=== PATIENT | male | born 1945 | race Caucasian/White ===

== ENCOUNTER 2018-04-10 12:39 | Emergency (ER) | payer MEDICARE ==
[2018-04-10 16:05] LABS: ABS Basophils 0.1 10^3/ul (0-0.2); ABS Eosinophils 0.1 10^3/ul (0-0.6); ABS Lymphocytes 1.7 10^3/ul (1.0-4.8); ABS Monocytes 0.9 10^3/ul (0-0.8); ABS Neutrophils 6.7 10^3/ul (1.5-7.7); ABS Nucleated RBC 0 10^3/ul; Eosinophil % 1.5 % (0-6); Hematocrit 49 % (42-52); Hemoglobin 17.1 g/dl (14.0-18.0); Lymphocyte % 17.7 % (25-47); Mean Corpuscular HGB Conc 35 g/dl (31-36); Mean Corpuscular Hemoglobin 33 pg (27-31); Mean Corpuscular Volume 95 fL (80-94); Mean Platelet Volume 7.7 um3 (7.4-10.4); Nucleated Red Blood Cells % 0.1; Platelet Count 260 10^3/ul (150-450); Red Blood Count 5.17 10^6/ul (4.00-5.40); Red Cell Distribution Width 14 % (10.5-15); White Blood Count 9.4 10^3/ul (3.5-10.8)
[2018-04-10 16:27] LABS: EGFR Non-African American 69.6 (>60)
--- NOTE | 2018-04-10 16:34 | ED ---
Abdominal Pain/Male - HPI Summary HPI Summary: A 72 y/o M presents to the ED with RLQ pain since yesterday morning when he was in his Spin class. He does not feel the pain when lying down, but sitting up worsens the pain. The pain does not worsen when coughing or sneezing. He describes the pain as an intermittent pressure that once in a while feels like a pushing pain. He denies any emesis, seizures, sweats, chills, groin pain, testicle pain, back pain, hematuria, diarrhea, bloody stool or Hx of kidney stones. - History of Current Complaint Chief Complaint: EDAbdPain Stated Complaint: RT ABD PAIN Time Seen by Provider: 04/10/18 15:24 Hx Obtained From: Patient Onset/Duration: Sudden Onset, Lasting Hours, Still Present Timing: Intermittent, Lasting Hours Severity Initially: Moderate Severity Currently: Mild Pain Intensity: 2 Pain Scale Used: 0-10 Numeric Location: Discrete At: RLQ Character: Other: - pressure Aggravating Factor(s): Other: - sitting up Associated Signs And Symptoms: Positive: Negative - Allergies/Home Medications Allergies/Adverse Reactions: Allergies Allergy/AdvReac Type Severity Reaction Status Date / Time gluten Allergy See Comment Verified 04/10/18 12:58 Home Medications: Home Medications Aspirin [Adult Aspirin Regimen] 81 mg PO DAILY 04/10/18 [History Confirmed 04/10] Fluticasone-Salmeterol 500-50* [Advair Diskus 500-50*] 1 puff INH BID 04/10/18 [ History Confirmed 04/10/18] Methylphenidate HCl [Methylphenidate HCl ER] 30 mg PO DAILY 04/10/18 [History Confirmed 04/10/18] Methylphenidate HCl [Ritalin] 20 mg PO DAILY 04/10/18 [History Confirmed ] Omalizumab (NF) [Xolair (NF)] 150 mg SUBCUT SEE INSTRUCTIONS 04/10/18 [History Confirmed 04/10/18] [place]-3 Fatty Acids/Fish Oil [Fish Oil 1,000 mg Capsule] 1 each PO DAILY [History Confirmed 04/10/18] Testosterone Cypionate 100 mg IM WEEKLY 04/10/18 [History Confirmed 04/10/18] PMH/Surg Hx/FS Hx/Imm Hx Previously Healthy: No Endocrine/Hematology History: Reports: Hx Diabetes Respiratory History: Reports: Hx Asthma Musculoskeletal History: Denies: Hx Osteoporosis - Surgical History Surgery Procedure, Year, and Place: PANCREATIC CA - Immunization History Immunizations Up to Date: Yes Infectious Disease History: No Infectious Disease History: Denies: Traveled Outside the [place] in Last 30 Days - Family History Known Family History: Negative: Hypertension, Diabetes - Social History Alcohol Use: Rare Alcohol Amount: 1 beer per week Substance Use Type: Reports: None Smoking Status (MU): Never Smoked Tobacco Review of Systems Negative: Fever, Chills Negative: Erythema Negative: Sore Throat Negative: Chest Pain Negative: Shortness Of Breath, Cough Gastrointestinal: Negative - bloody stool Positive: Abdominal Pain. Negative: Vomiting, Diarrhea, Nausea Negative: dysuria, hematuria Negative: Myalgia, Edema Neurological: Negative - dizziness All Other Systems Reviewed And Are Negative: Yes Physical Exam - Summary Physical Exam Summary: Constitutional: Well-developed, Well-nourished, Alert. (-) Distressed Skin: Warm, Dry HENT: Normocephalic; Atraumatic Eyes: Conjunctiva normal Neck: Musculoskeletal ROM normal neck. (-) JVD, (-) Stridor, (-) Tracheal deviation Cardio: Rhythm regular, rate normal, Heart sounds normal; Intact distal pulses; The pedal pulses are 2+ and symmetric. Radial pulses are 2+ and symmetric. (-) Murmur Pulmonary/Chest wall: Effort normal. (-) Respiratory distress, (-) Wheezes, (-) Rales Abd: Discrete RLQ tenderness with deep palpation reproducible when sitting up, no palpatory hernia, soft, (-) epigastric tenderness, (-) Distension, (-) Guarding, (-) Rebound Musculoskeletal: (-) Edema Lymph: (-) Cervical adenopathy Neuro: Alert, Oriented x3 Psych: Mood and affect Normal Discrete RLQ tenderness with deep palpation no palpatory hernia no rebound or guardin reproducible when sitting up Triage Information Reviewed: Yes Vital Signs On Initial Exam: Initial Vitals Temp Pulse Resp BP Pulse Ox 98.1 F 74 16 163/90 97 04/10/18 12:52 04/10/18 12:52 04/10/18 12:52 04/10/18 12:52 04/10/18 12:52 Vital Signs Reviewed: Yes Diagnostics - Vital Signs Vital Signs Temp Pulse Resp BP Pulse Ox 04/10/18 15:03 98.4 F 65 16 130/98 98 04/10/18 12:52 98.1 F 74 16 163/90 97 - Laboratory Lab Results: Lab Results 04/10/18 04/10/18 04/10/18 Range/Units 15:51 15:51 15:51 WBC 9.4 (3.5-10.8) 10^3/ul RBC 5.17 (4.00-5.40) 10^6/ul Hgb 17.1 (14.0-18.0) g/dl Hct 49 (42-52) % MCV 95 H (80-94) fL MCH 33 H (27-31) pg MCHC 35 (31-36) g/dl RDW 14 (10.5-15) % Plt Count 260 (150-450) 10^3/ul MPV 7.7 (7.4-10.4) um3 Neut % (Auto) 70.9 (38-83) % Lymph % (Auto) 17.7 L (25-47) % [place] % (Auto) 9.3 H (0-7) % Eos % (Auto) 1.5 (0-6) % Baso % (Auto) 0.6 (0-2) % Absolute Neuts (auto) 6.7 (1.5-7.7) 10^3/ul Absolute Lymphs (auto) 1.7 (1.0-4.8) 10^3/ul Absolute Monos (auto) 0.9 H (0-0.8) 10^3/ul Absolute Eos (auto) 0.1 (0-0.6) 10^3/ul Absolute Basos (auto) 0.1 (0-0.2) 10^3/ul Absolute Nucleated RBC 0 10^3/ul Nucleated RBC % 0.1 Sodium 136 (135-145) mmol/L Potassium 4.5 (3.5-5.0) mmol/L Chloride 105 (101-111) mmol/L Carbon Dioxide 26 (22-32) mmol/L Anion Gap 5 (2-11) mmol/L BUN 21 (6-24) mg/dL Creatinine 1.05 (0.67-1.17) mg/dL Est GFR ( Amer) 84.2 (>60) Est GFR (Non-Af Amer) 69.6 (>60) BUN/Creatinine Ratio 20.0 (8-20) Glucose 150 H (70-100) mg/dL Lactic Acid 0.9 (0.5-2.0) mmol/L Calcium 9.3 (8.6-10.3) mg/dL Total Bilirubin 0.70 (0.2-1.0) mg/dL AST 27 (13-39) U/L ALT 24 (7-52) U/L Alkaline Phosphatase 59 (34-104) U/L C-Reactive Protein 1.78 (<8.01) mg/L Total Protein 6.9 (6.4-8.9) g/dL Albumin 4.1 (3.2-5.2) g/dL Globulin 2.8 (2-4) g/dL Albumin/Globulin Ratio 1.5 (1-3) Lipase < 10 L (11.0-82.0) U/L Result Diagrams: 04/10/18 15:51 04/10/18 15:51 Lab Statement: Any lab studies that have been ordered have been reviewed, and results considered in the medical decision making process. - CT Abdomen/Pelvis CT Interpretation Completed By: Radiologist - No acute intra-abdominal pathology. Other chronic findings, as above. This report has been reviewed by the ED physician Abdominal Pain Fem Course/Dx - Course Course Of Treatment: A 72 y/o M presents to the ED with RLQ pain since yesterday morning when he was in his Spin class. He does not feel the pain when lying down, but sitting up worsens the pain. The pain does not worsen when coughing or sneezing. He describes the pain as an intermittent pressure that once in a while feels like a pushing pain. He denies any emesis, seizures, sweats, chills, groin pain, testicle pain, back pain, hematuria, diarrhea, bloody stool or Hx of kidney stones. The physical exam revealed RLQ Tenderness that was exacerbated with movement. Labs and CT were negative. I counciled him on the incidental findings of his CT. Final Dx: abdominal muscle strain and left inguinal hernia. The patient was instructed to use Tylenol and a heating pad. The patient will be discharged and should follow up with his PCP in 2-3 days. The patient is agreeable with this plan. - Diagnoses Provider Diagnoses: Abdominal muscle strain, Left inguinal hernia Discharge - Sign-Out/Discharge Documenting (check all that apply): Patient Departure - DC - Discharge Plan Condition: Stable Disposition: HOME Patient Education Materials: Abdominal Pain (ED) Referrals: Olena Gallardo MD [Primary Care Provider] - 2 Days Additional Instructions: Please return to the ED if you experience any changing or worsening symptoms. - Attestation Statements Document Initiated by Scribe: Yes Documenting Scribe: Jaya Hua Provider For Whom Scribe is Documenting (Include Credential): Sam Felton MD Scribe Attestation: Jaya Pham, scribed for Sam Felton MD on 04/10/18 at 1941.
[2018-04-10] MEDS ORDERED: Iohexol 300* (CONTRAST) 10 ML SDV IV ONE (17:00)
--- NOTE | 2018-04-10 19:09 | RAD ---
EXAM: CT Abdomen and Pelvis With Intravenous Contrast CLINICAL HISTORY: 72 years old, male; Pain; Abdominal pain; Localized; Right lower quadrant (rlq); Prior surgery; Surgery date: 6+ months; Surgery type: 2005 partial pancreas removal; Additional info: Rlq pain, HX pancreatic ca TECHNIQUE: Axial computed tomography images of the abdomen and pelvis with intravenous contrast. All CT scans at this facility use at least one of these dose optimization techniques: automated exposure control; mA and/or kV adjustment per patient size (includes targeted exams where dose is matched to clinical indication); or iterative reconstruction. Coronal and sagittal reformatted images were created and reviewed. CONTRAST: 111 mL of [id number] administered intravenously. COMPARISON: No relevant prior studies available. FINDINGS: Lung bases: Unremarkable. No mass. No consolidation. ABDOMEN: Liver: Unremarkable. No mass. Gallbladder and bile ducts: Unremarkable. No calcified stones. No ductal dilation. Pancreas: Surgical changes compatible partial pancreatectomy. Spleen: Unremarkable. No splenomegaly. Adrenals: Unremarkable. No mass. Kidneys and ureters: Unremarkable. No solid mass. No hydronephrosis. Stomach and bowel: Unremarkable. No obstruction. No mucosal thickening. PELVIS: Appendix: No findings to suggest acute appendicitis. Bladder: Unremarkable. No mass. Reproductive: Unremarkable as visualized. ABDOMEN and PELVIS: Intraperitoneal space: Unremarkable. No free air. No significant fluid collection. Bones/joints: Multilevel degenerative changes of the visualized spine. No acute fracture. No dislocation. Soft tissues: Small fat containing left inguinal hernia. Vasculature: Unremarkable. No abdominal aortic aneurysm. Lymph nodes: Unremarkable. No enlarged lymph nodes. IMPRESSION: 1. No acute intra-abdominal pathology. 2. Other chronic findings, as above. To contact [facility] with a general question: Operations Center - [phone] For direct physician to physician contact: Physician Hotline - [phone] [facility] ([facility] Facility ID #[id number])
[2018-04-10 19:22] LABS: Urine Appearance Clear; Urine Blood Negative (Negative); Urine Color Straw; Urine Ketones Negative (Negative); Urine Protein Negative (Negative); Urine Urobilinogen Negative (Negative)
[2018-04-10 20:04] VITALS: BP 162/92
== END 2018-04-10 20:05 | disposition home or self-care (01) ==
LOC: ED 12:39
DX: S39.011A Strain of muscle, fascia and tendon of abdomen, initial encounter (principal); X58.XXXA Exposure to other specified factors, initial encounter; R10.31 Right lower quadrant pain; K46.9 Unspecified abdominal hernia without obstruction or gangrene; E11.9 Type 2 diabetes mellitus without complications; Z79.899 Other long term (current) drug therapy; Z85.07 Personal history of malignant neoplasm of pancreas
CPT/HCPCS: 36415; 74177; 80053; 81003; 83605; 83690; 85025; 86140; 86803; 99282; Q9967

== ENCOUNTER 2024-03-04 09:16 | Observation (INO) ==
[2024-03-04 10:57] LABS: ABS Lymphocytes 1.1 10^3/uL (1.0-4.8); ABS Monocytes 1.5 10^3/uL (0.0-1.1); ABS Neutrophils 6.8 10^3/uL (1.5-7.6); ABS Nucleated RBC 0.01 10^3/ul; Hemoglobin 17.8 g/dL (13.2-16.3); Lymphocyte % 11.8 %; Mean Corpuscular Hemoglobin 32.2 pg (27-33); Mean Corpuscular Hgb Conc 34.2 g/dL (31-36); Mean Corpuscular Volume 94.3 fL (80-97); Nucleated Red Blood Cells % 0.1 %/100WBC (0.0-0.8); Platelet Count 198 10^3/uL (150-450); Red Blood Count 5.52 10^6/uL (4.06-5.63); Red Cell Distribution Width 14.2 % (12-17); White Blood Count 9.5 10^3/uL (3.6-10.2)
[2024-03-04 11:40] LABS: Albumin 4.1 g/dL (3.2-5.2); Albumin/Globulin Ratio 1.2 (1-3); Calcium 8.7 mg/dL (8.6-10.3); Creatinine, Serum 1.6 mg/dL (0.67-1.17); Globulin 3.3 g/dL (2-4); Potassium 5.2 mmol/L (3.5-5.0); Total Bilirubin 0.5 mg/dL (0.2-1.0); Total Protein 7.4 g/dL (6.4-8.9); eGFR CKD-EPI 44.1 (>60)
[2024-03-04] MEDS: NS 0.9% 1000 ml BAG 1,000 ML IV ONE (12:10)
[2024-03-04] MEDS: Acetaminophen IV 1 GM/100ML 1,000 MG/100 ML BAG IV ONE (12:12)
[2024-03-04 12:40] LABS: Rapid Strep Molecular Negative (Negative)
[2024-03-04] MEDS: Iodixanol (CONTRAST) 320 MG/ML 100 ML SDV IV ONE (13:33)
[2024-03-04] MEDS ORDERED: Polyethylene Glycol 3350 17 GM PACKET PO PRN (15:17)
[2024-03-04] MEDS ORDERED: Senna TAB 8.6 mg TAB PO PRN (15:17)
[2024-03-04] MEDS ORDERED: Benzocaine/Menthol LOZ MT PRN (15:27)
[2024-03-04] MEDS: Dexamethasone IV 4 MG/ML VIAL 1 ml VIAL IV SLOW PU ONE (15:57)
[2024-03-04] MEDS ORDERED: Albuterol HFA INHALER 8 gm MDI INH PRN (16:20)
[2024-03-04] MEDS ORDERED: Dextrose 50% Syringe 50 ml 25 GM/50 ML SYRINGE IV PUSH PRN (16:21)
[2024-03-04] MEDS: Remdesivir 100 mg Vial 200 MG in NS 0.9% 250 ml 210 ML IV ONE (16:23)
[2024-03-04] MEDS: Remdesivir 100 mg Vial 100 MG in NS 0.9% 250 ml 230 ML IV SCH (17:05)
[2024-03-04] MEDS: Azithromycin 500 mg/250 ml NS 500 MG/250 ML BAG IVPB SCH (17:53)
[2024-03-04] MEDS: Magic MouthWash2-BEN/MAAL/LIDO/NYST 240 ML BTL (alt formulation) SWISH SPIT SCH (17:53)
[2024-03-04] MEDS: Lactated Ringers 1000 ml BAG 1,000 ML IV ONE (17:53)
[2024-03-04] MEDS: Enoxaparin 40 MG/0.4 ML SYR SUBCUT SCH (18:06)
[2024-03-04] MEDS: Mometasone/Formoter 200/5 MDI INH SCH (19:42)
[2024-03-04 19:57] LABS: INR 1.22 (0.85-1.14)
[2024-03-05 06:32] LABS: ABS Lymphocytes 0.7 10^3/uL (1.0-4.8); ABS Monocytes 0.8 10^3/uL (0.0-1.1); ABS Neutrophils 5.7 10^3/uL (1.5-7.6); Hematocrit 45.6 % (38-53); Hemoglobin 15.8 g/dL (13.2-16.3); Lymphocyte % 10.1 %; Mean Corpuscular Hemoglobin 32.5 pg (27-33); Mean Corpuscular Hgb Conc 34.6 g/dL (31-36); Mean Corpuscular Volume 93.9 fL (80-97); Mean Platelet Volume 8.2 fL (7.5-11.2); Platelet Count 197 10^3/uL (150-450); Red Blood Count 4.86 10^6/uL (4.06-5.63); Red Cell Distribution Width 13.8 % (12-17); White Blood Count 7.3 10^3/uL (3.6-10.2)
[2024-03-05 06:38] LABS: INR 1.24 (0.85-1.14)
[2024-03-05 06:47] LABS: Albumin 3.2 g/dL (3.2-5.2); Albumin/Globulin Ratio 1.2 (1-3); Calcium 7.8 mg/dL (8.6-10.3); Creatinine, Serum 1.35 mg/dL (0.67-1.17); Globulin 2.7 g/dL (2-4); Potassium 4.9 mmol/L (3.5-5.0); Total Bilirubin 0.3 mg/dL (0.2-1.0); Total Protein 5.9 g/dL (6.4-8.9); eGFR CKD-EPI 54.1 (>60)
[2024-03-05] MEDS: Insulin GLARGINE 100 un/ml 10 ml VIAL SUBCUT SCH (08:21)
[2024-03-05 10:21] VITALS: BP 128/56
[2024-03-05] MEDS ORDERED: Remdesivir 100 mg Vial 100 MG in NS 0.9% 250 ml 230 ML IV SCH (21:00)
== END 2024-03-05 11:30 | disposition home or self-care (01) ==
LOC: ED 09:16 → EDHOLD 09:16 → MED 15:37
PROVIDERS: ADMIT Internal Medicine; ATTEND Internal Medicine